=== PATIENT | male | born 1990 | race Two or more races ===

== ENCOUNTER 2021-12-07 10:48 | Emergency (ER) | payer OTHER ==
[~2021-12-07] VITALS: Ht 185.4 cm; Wt 81.6 kg
[2021-12-07] MEDS ORDERED: ACETAMINOPHEN 500 MG TAB PO ONE (14:30)
[2021-12-07] MEDS ORDERED: KETOROLAC TROMETH 30 MG/ML 1ML VIAL IM ONE (15:45)
[2021-12-07] MEDS ORDERED: CYCL-837 PO (15:45)
[2021-12-07] MEDS ORDERED: IBUP600T27 PO (15:46)
[2021-12-07 15:53] VITALS: BP 127/84
== END 2021-12-07 16:05 | disposition home or self-care (01) ==
LOC: ER 10:48
DX: S39.012A Strain of muscle, fascia and tendon of lower back, initial encounter (principal); S46.912A Strain of unspecified muscle, fascia and tendon at shoulder and upper arm level, left arm, initial encounter; S50.01XA Contusion of right elbow, initial encounter; I10 Essential (primary) hypertension; V43.62XA Car passenger injured in collision with other type car in traffic accident, initial encounter; Y93.89 Activity, other specified; Y92.410 Unspecified street and highway as the place of occurrence of the external cause; Y99.8 Other external cause status
CPT/HCPCS: 70450; 72070; 72100; 73030; 73080; 73590; J1885